=== PATIENT | female | born 1955 | race Caucasian/White ===

== ENCOUNTER 2018-08-28 14:30 | Emergency (ER) | payer BC ==
[2018-08-28 15:12] VITALS: BP 113/72
--- NOTE | 2018-08-28 15:24 | UC ---
General HPI - HPI Summary HPI Summary: pt reports having had a head cold a few weeks ago. at that time her pcp dx with fluid in L ear as well. she was tx with an antibiotic which she took only part of. the past 2 days, she noted L ear pressure and feeling "like a vacuum" plus decreased hearing in L ear. no pain or fever - History of Current Complaint Chief Complaint: UCRespiratory Stated Complaint: RIGHT EAR COMPLAINT Time Seen by Provider: 08/28/18 15:18 Hx Obtained From: Patient Timing: Constant Pain Intensity: 0 Aggravating: nothing Alleviating: nothing Associated Signs & Symptoms: Negative: Fever, Headache - Allergy/Home Medications Allergies/Adverse Reactions: Allergies Allergy/AdvReac Type Severity Reaction Status Date / Time No Known Allergies Allergy Verified 08/28/18 15:06 PMH/Surg Hx/FS Hx/Imm Hx GI/ History: Gastroesophageal Reflux - Surgical History Surgical History: Yes Surgery Procedure, Year, and Place: PARTIAL THYROIDECTOMY 1994. CERVICAL POLPECTOMY 2007. 2 previous thyroid nodule biopsies 2008,2011 - Family History Known Family History: Positive: Non-Contributory - Social History Alcohol Use: None Substance Use Type: None Smoking Status (MU): Never Smoked Tobacco - Immunization History Vaccination Up to Date: Yes Review of Systems All Other Systems Reviewed And Are Negative: Yes Constitutional: Negative: Fever ENT: Negative: Sore Throat, Nasal Discharge, Sinus Congestion Neurological: Negative: Headache Physical Exam Triage Information Reviewed: Yes Appearance: Well-Appearing Vital Signs: Initial Vital Signs Temp 97.9 F 08/28/18 15:06 Pulse 73 08/28/18 15:06 Resp 16 08/28/18 15:06 BP 113/72 08/28/18 15:06 Pulse Ox 98 08/28/18 15:06 Vital Signs Reviewed: Yes Eyes: Positive: Conjunctiva Clear ENT: Positive: Pharynx normal, TMs normal - and canals clear. No auricular adenopathy or mastoid tenderness. Able to hear rubbing or fingers in both ears but R>L. Negative: Nasal congestion, Nasal drainage Neck: Positive: Supple, Nontender, No Lymphadenopathy Respiratory: Positive: Lungs clear, Normal breath sounds Cardiovascular: Positive: RRR, No Murmur Abdomen Description: Positive: Nontender Musculoskeletal: Positive: ROM Intact Neurological: Positive: Alert Psychological: Positive: Age Appropriate Behavior Skin Exam: Normal Skin: Negative: Rashes Course/Dx - Differential Dx - Multi-Symptom Differential Diagnoses: Other - no concern for OM, OE and not typical of menieres. - Diagnoses Provider Diagnosis: Eustachian tube dysfunction Discharge - Sign-Out/Discharge Documenting (check all that apply): Patient Departure All imaging exams completed and their final reports reviewed: No Studies - Discharge Plan Condition: Stable Disposition: HOME Prescriptions: predniSONE [Prednisone 20 MG TAB] 40 mg PO DAILY 5 Days #10 tablet Patient Education Materials: Earache (ED) Referrals: Aaron Flowers MD [Medical Doctor] - 7 Days Additional Instructions: start an over the counter decongestant daily for 3 days per label then as needed. - Billing Disposition and Condition Condition: STABLE Disposition: Home
== END 2018-08-28 15:41 | disposition home or self-care (01) ==
LOC: UCCORT 14:30
DX: H69.82 Other specified disorders of Eustachian tube, left ear (principal); K21.9 Gastro-esophageal reflux disease without esophagitis
CPT/HCPCS: 99212; G0463